=== PATIENT | female | born 1950 | race Two or more races ===

== ENCOUNTER → 2016-07-03 | Outpatient (CLI) | payer MEDICARE ==
[~2016-07-03] MED LIST: REGADENOSON 0.4 MG/5 ML SYRINGE IV ONE
--- NOTE | 2016-07-03 12:01 | EST ---
DATE OF SERVICE: 07/03/2016 AGE: 66Y SEX: F HT: 5'7" WT: 245 lbs. Protocol Isaias: Other: Lexiscan Cardiolite Stage: Dur. of Exercise: *Heart Rate Blood Pressure *Rest: 88 Rest: 137/71 * *Max. Achieved: 119 Maximum BP: 167/68 85% PMHR: 100% PMHR: *METS: INDICATIONS: Myocarditis, cardiomegaly. MEDICATIONS: Losartan, simvastatin, metoprolol. Mrs. Pollard is a 66-year-old female with history of hypertension and smoking being evaluated for cardiac status as a preop evaluation. Baseline EKG showed sinus rhythm with normal PA interval and QRS duration with mild diffuse artifacts. Blood pressure at rest is 137/71 with pulse rate of 88. A standard dose of Lexiscan was infused. EKGs taken during and after the infusion did not reveal any significant changes from the baseline. FINAL IMPRESSION: 1. Negative Lexiscan stress test. 2. Report on the nuclear images to be given by the radiologist.
--- NOTE | 2016-07-03 12:10 | NM ---
EXAMINATION TYPE: NM stress lexiscan cardiolite DATE OF EXAM: 07/03/2016 11:56 AM COMPARISON: NONE HISTORY: Myocarditis, cardiomegaly TECHNIQUE: After the intravenous administration of 10.75 mCi Tc 99m Sestamibi - Cardiolite resting S PECT images acquired 39 minutes post injection. The patient received 0.4mg Lexiscan, 26.9 mCi Tc 99m Sestamibi - Stress images obtained [address] injection FINDINGS: Review of stress and rest SPECT images demonstrates suggestion of decreased radiopharmaceutical uptak e along the anterolateral wall of the left ventricle on stress as compared to rest images. Gated lisbet lysis shows normal wall motion with an estimated left ventricular ejection fraction of 64 %. No focal wall motion abnormality. There appear to be some technical difficulties with the exam. 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 A Yellow message has been communicated to Summer Jaramillo MD via the [employer] system on 07/03/2016 12:08 PM, Message ID [id number].
== END | disposition home or self-care (01) ==
LOC: RADNMMAIN 08:44
PROVIDERS: ATTEND Internal Medicine
DX: I51.7 Cardiomegaly (principal)
CPT/HCPCS: 93017; 78452; A9500; J2785

== ENCOUNTER → 2016-07-07 | Day surgery (SDC) | payer MEDICARE, OTHER ==
[2016-07-04 12:52] VITALS: BMI 39.1
[~2016-07-07] MED LIST changes: +ALPRAZolam 0.25 MG TAB PO PRN; +ALPRAZolam 0.5 MG TAB PO PRN; +ASPIRIN 325 MG TAB PO STA; +ATORVASTATIN 80 MG TAB PO STA; +IODIXANOL 320 MG/ML 100 ML INTRAARTER ONE; +LIDOCAINE 2% INJ 20 MG/ML (20 ML MDV) ONE; +LIDOCAINE 2% INJ 20 MG/ML SQ ONE; +MIDAZOLAM 2 MG/2 ML VIAL IV ONE; -REGADENOSON 0.4 MG/5 ML SYRINGE IV ONE; +RX INFO: IV CONTRAST WAS GIVEN 1 EACH MISC MISCELLANE PRN; +SODIUM CHLORIDE 0.9% 1,000 ML IV SCH; +SODIUM CHLORIDE 0.9% 1,000 ML in EMPTY BAG 1 BAG IV ONE; +diphenhydrAMINE 50 MG/ML 1 ML VIAL IVP ONE; +fentaNYL (PF) 50 MCG/ML 2 ML AMP IV ONE
[2016-07-07 09:22] VITALS: RESP 16; TEMP 97.9
[2016-07-07 16:44] VITALS: BP 136/72
[2016-07-07 17:46] VITALS: PULSE 72
--- NOTE | 2016-07-08 06:06 | CC ---
DATE OF SERVICE: Mrs. Pollard was seen in the office for the evaluation of the abnormal stress test. Patient has a history of hypertension and hyperlipidemia. The patient had a positive with a reversible perfusion defect in the anterolateral wall. In view of that, the patient was recommended to have a cardiac catheterization for definitive diagnosis. PROCEDURE: The right groin was prepped and draped in the usual manner and the skin was ( ) and the right groin was entered using Seldinger technique and #6 Polish sheath was placed in. Selective coronary angiography was then performed in multiple projections and the left ventricular pressures were obtained. Patient tolerated the procedure well. HEMODYNAMICS: Left ventricular end-diastolic pressure is 12 mmHg prior to angiography. No gradient is noted across the aortic valve. SELECTIVE CORONARY ANGIOGRAPHY: Left main coronary artery is normal and patent. LAD is a good caliber blood vessel and gives rise to good size diagonal branch. LAD and its branches are normal. Circumflex coronary artery is a nondominant distribution. Gives rise to obtuse marginal branch. Circumflex coronary artery and its branches are normal. Right coronary artery is normal and gives rise to the posterior descending artery. Right coronary artery and its branches are normal. FINAL IMPRESSION: This study reveals normal coronary arteries. Left ventricular end-diastolic pressure is normal. RECOMMENDATIONS: Continue medical treatment.
== END ==
LOC: CATHCVL 08:40
PROVIDERS: ATTEND Internal Medicine Cardiovascular Disease
DX: R94.39 Abnormal result of other cardiovascular function study (principal); I10 Essential (primary) hypertension; E78.5 Hyperlipidemia, unspecified; Z79.899 Other long term (current) drug therapy; Z87.891 Personal history of nicotine dependence
CPT/HCPCS: 93458; C1760; C1894; C1769; J2001; J2250; J1200; Q9967; J3010

== ENCOUNTER 2016-08-21 07:12 | Day surgery (SDC) | payer MEDICARE, OTHER ==
[2016-08-19 15:20] VITALS: BMI 39.1
--- NOTE | 2016-08-20 15:35 | HP ---
DATE OF ADMISSION: Virgen Pollard is a 66-year-old patient seen with progressive right knee pain. After having treatment options discussed, she elected to proceed with right knee arthroscopy. Consent was obtained. Medical clearance provided by Dr. Jaramillo. Past medical history is hypertension, hyperlipidemia. Past surgical history is breast biopsy. Daily medications: 1. Diclofenac. 2. Lotensin. 3. Metoprolol. 4. Simvastatin. ALLERGIES: None. SOCIAL HISTORY: Patient denies current tobacco use. Physical evaluation of the right knee: Range of motion is 0 to 120 degrees, mild effusion. Tenderness along the medial and lateral joint lines. Positive medial Shmuel's, positive lateral Shmuel's. Medial crepitus with range of motion. Ligaments are stable. Hip rotation is without pain. Distal neurovascular exam is intact. Radiographs of the right knee revealed moderate to severe osteoarthritis. An MRI of the right knee revealed medial meniscal tear, partial anterior cruciate ligament tear and joint effusion. IMPRESSION: Internal derangement right knee with meniscal tear. PLAN: Right knee arthroscopy with partial meniscectomy and debridement.
[~2016-08-21 07:12] MED LIST changes: -ALPRAZolam 0.25 MG TAB PO PRN; -ALPRAZolam 0.5 MG TAB PO PRN; -ASPIRIN 325 MG TAB PO STA; -ATORVASTATIN 80 MG TAB PO STA; +DEXAMETHASONE SOD PHOSPHATE 10 MG/ML 1 ML VIAL IV ONE; -IODIXANOL 320 MG/ML 100 ML INTRAARTER ONE; +LACTATED RINGERS 1,000 ML IV SCH; +LIDOCAINE 1% 20 ML VIAL (10MG/ML) FOR IV START INTRADERMA PRN; -LIDOCAINE 2% INJ 20 MG/ML (20 ML MDV) ONE; -LIDOCAINE 2% INJ 20 MG/ML SQ ONE; -MIDAZOLAM 2 MG/2 ML VIAL IV ONE; +MIDAZOLAM 2 MG/2 ML VIAL IV PRN; -RX INFO: IV CONTRAST WAS GIVEN 1 EACH MISC MISCELLANE PRN; +SCOPOLAMINE 1.5MG/72HR PATCH TRANSDERM ONE; -SODIUM CHLORIDE 0.9% 1,000 ML IV SCH; -SODIUM CHLORIDE 0.9% 1,000 ML in EMPTY BAG 1 BAG IV ONE; +ceFAZolin 2 GM in SODIUM CHLORIDE 0.9% 100 ML IVPB ONE; -diphenhydrAMINE 50 MG/ML 1 ML VIAL IVP ONE; -fentaNYL (PF) 50 MCG/ML 2 ML AMP IV ONE
[2016-08-21 07:46] VITALS: RESP 16
[2016-08-21] MEDS: ONDANSETRON 4 MG/2 ML VIAL IVP ONE ×2 (07:56→09:48)
[2016-08-21] MEDS ORDERED: LIDOCAINE 1% INJ 10MG/ML (20 ML MDV) ONE (08:49)
[2016-08-21] MEDS ORDERED: PROPOFOL 10 MG/ML 20 ML VIAL IV ONE (08:49)
[2016-08-21] MEDS ORDERED: ePHEDrine 50 MG/ML 1 ML AMP ONE (08:49)
[2016-08-21] MEDS ORDERED: MIDAZOLAM 2 MG/2 ML VIAL ONE (08:49)
[2016-08-21] MEDS ORDERED: BUPIVACAIN-EPI 0.25%-1:200,000 30 ML VIAL INTRAARTIC ONE (08:49)
[2016-08-21] MEDS ORDERED: fentaNYL (PF) 50 MCG/ML 2 ML AMP ONE (08:49)
[2016-08-21] MEDS ORDERED: LACTATED RINGERS 1,000 ML IV ONE (09:22)
[2016-08-21 09:42] VITALS: TEMP 97
[2016-08-21] MEDS ORDERED: KETOROLAC 30 MG/ML 1 ML VIAL IVP ONE (09:48)
[2016-08-21] MEDS: HYDROmorphone 1 MG/ML 1 ML SYRINGE IVP PRN ×2 (09:48→10:03)
--- NOTE | 2016-08-21 09:49 | P.OP ---
Date of Procedure: 08/21/16 Preoperative Diagnosis: Internal derangement right knee Postoperative Diagnosis: 1. Tear medial and lateral meniscus right knee 2. Grade 4 chondromalacia medial femoral condyle right knee 3. Grade 4 chondromalacia lateral femoral condyle right knee 4. Grade 3 chondromalacia patella right knee 5. Reactive synovitis medial and suprapatellar compartments right knee Procedure(s) Performed: 1. Arthroscopic partial medial and lateral meniscectomy right knee 2. Arthroscopic chondroplasty medial femoral condyle right knee 3. Arthroscopic chondroplasty lateral femoral condyle right knee 4. Arthroscopic chondroplasty patella right knee 5. Arthroscopic partial synovectomy medial and suprapatellar compartments right knee Anesthesia: GETA, local Surgeon: Reyes Leyva Estimated Blood Loss (ml): 10 Pathology: none sent Condition: stable Disposition: PACU Indications for Procedure: 66-year-old patient seen with progressive right knee pain. After treatment options were discussed, she elected to proceed with right knee arthroscopy. Operative Findings: See description of procedure Description of Procedure: Patient was taken to the operative suite. Patient underwent a general anesthetic by the department of anesthesia. Patient was given preoperative antibiotics. The right lower extremity was placed in a well-padded arthroscopic leg garnett. The right leg was prepped and draped in the normal sterile orthopedic fashion. A lateral parapatellar and suprapatellar incision was made. Trochars were inserted. Arthroscopy was initiated. Suprapatellar pouch revealed thick reactive synovitis. The patellofemoral joint appeared to articulate congruently. There was grade 3 chondromalacia of the patella with some osteochondral tears present. The scope was guided into the medial gutter. No loose bodies or plica were identified. The scope was then guided into the medial compartment. A medial parapatellar incision was made. Trocar inserted followed by probe. There was a complex tear posterior horn medial meniscus into the midbody. There were grade 4 chondromalacia changes of the medial femoral condyle with some osteochondral tears present. Reactive synovitis anteriorly. A partial medial meniscectomy performed on a stable tissue. Chondroplasty medial femoral condyle and partial synovectomy performed as well. The residual meniscus was stable. Scope and probe were then guided into the intercondylar notch. Cruciates were identified, probed and found to be stable. The scope and probe were then guided into lateral compartment. There was a complex tear anterior horn midbody lateral meniscus and radial tears in the posterior horn lateral meniscus. Grade 4 chondral malacia changes were noted of the lateral femoral condyle and tibial plateau with areas of clay-ha-cpta contact. A partial medial meniscectomy performed on a stable tissue. Chondroplasty lateral femoral condyle and partial synovectomy performed as well. The residual meniscus was stable. The scope was in guided back into the suprapatellar compartment. Motorize shaver was introduced into the super patellar compartment debriding out some piecemeal fragments of meniscus. I performed a chondroplasty of patella and partial synovectomy. Shaver was removed. I took one more look on the entire knee, no residual debris. Instruments were now removed from the joint. The joint was infiltrated with .25 % Marcaine. Steri-Strips were applied to the portal sites. Sterile dressings were applied. The patient was placed into a CARISSA hose. No tourniquet was utilized. The patient was awakened, transferred to a bed and taken to recovery stable satisfactory condition.
[2016-08-21 11:00] VITALS: BP 122/83; PULSE 96
== END 2016-08-21 11:49 | disposition home or self-care (01) ==
LOC: OR 07:12
PROVIDERS: ATTEND Orthopaedic Surgery
DX: S83.241A Other tear of medial meniscus, current injury, right knee, initial encounter (principal); S83.281A Other tear of lateral meniscus, current injury, right knee, initial encounter; X58.XXXA Exposure to other specified factors, initial encounter; M94.261 Chondromalacia, right knee; M22.41 Chondromalacia patellae, right knee; M65.861 Other synovitis and tenosynovitis, right lower leg; M25.461 Effusion, right knee; M17.11 Unilateral primary osteoarthritis, right knee; M23.91 Unspecified internal derangement of right knee; I10 Essential (primary) hypertension; E78.5 Hyperlipidemia, unspecified; I49.9 Cardiac arrhythmia, unspecified; Z79.899 Other long term (current) drug therapy; Z91.040 Latex allergy status
CPT/HCPCS: 29880; J2250; J1100; J0690; J2405; J2001; J3010; J1885; J1170; J2704